=== PATIENT | male | born 1985 | race Caucasian/White ===

== ENCOUNTER 2018-10-17 20:13 | Inpatient (IN) | payer MEDICAID ==
[~2018-10-17] VITALS: Ht 160 cm; Wt 66.2 kg
[2018-10-17 20:18] VITALS: BP 125/83
--- NOTE | 2018-10-17 20:24 | NUR ---
PT TAKEN TO BED 9
--- NOTE | 2018-10-17 20:25 | NUR ---
PT CAME TO ER C/O OF ABDOMINAL PAIN AND BLOATING SINCE 3PM, SHORTLY AFTER EATING. PT TOOK PEPTO BISMAL WITHOUT ANY RELIEF. ABDOMINAL PAIN IS IN LEFT LOWER QUADRANT. PAIN LEVEL 7/10, CRAMPING AND TENDER TO TOUCH. LAST BM 10/17/18. PT HAS NAUSEA. DENIES V/D. NO MED HX. SAFETY MEASURES IN PLACE. ERMD AT BEDSIDE.
[2018-10-17] MEDS ORDERED: KETOROLAC 30 MG/ML VIAL IVP ONE (20:30)
[2018-10-17] MEDS ORDERED: ONDANSETRON 4 MG/2 ML VIAL IVP ONE (20:30)
[2018-10-17] MEDS ORDERED: NACL 0.9% 1,000 ML IV ONE (20:30)
[2018-10-17 20:56] LABS: HEMOGLOBIN 15.9 g/dL (12.0-18.0); MEAN CORPUSCULAR HEMOGLOBIN 29 pg (27-31); MEAN CORPUSCULAR HGB CONC 34 g/dL (33-37); MEAN CORPUSCULAR VOLUME 86.8 fL (80-94); PLATELET COUNT (AUTO) 331 K/uL (140-450); RED BLOOD CELL COUNT(AUTO) 5.42 MIL/uL (4.20-6.10); RED CELL DISTRIBUTION WIDTH 12.9 % (11.6-13.7); WHITE BLOOD COUNT (AUTO) 18.9 K/uL (4.8-10.8)
--- NOTE | 2018-10-17 21:05 | NUR ---
PT AT CT
[2018-10-17 21:06] LABS: ANION GAP 14.3 (8-16); CARBON DIOXIDE 24.4 mmol/L (21-32); POTASSIUM 3.7 mmol/L (3.5-5.1)
[2018-10-17 21:10] LABS: LYMPHOCYTES % (MANUAL) 14 % (20-46); MONOCYTES % (MANUAL) 5 % (5-12)
[2018-10-17 21:12] LABS: ALBUMIN 4.3 g/dL (3.4-5.0); TOTAL BILIRUBIN 0.7 mg/dL (0.0-1.0)
--- NOTE | 2018-10-17 21:18 | NUR ---
PT RETURN FROM CT
[2018-10-17] MEDS ORDERED: metroNIDAZOLE 500 MG/NS PREMIX 100 ML IV ONE (21:45)
[2018-10-17 21:52] LABS: APPEARANCE,URINE CLEAR (CLEAR); BILIRUBIN,URINE NEGATIVE (NEGATIVE); BLOOD, URINE NEGATIVE (NEGATIVE); LEUKOCYTE ESTERASE ,URINE NEGATIVE (NEGATIVE); NITRITE, URINE NEGATIVE (NEGATIVE); PH,URINE 7.5 (5.0-9.0); UGLUCOSE NEGATIVE (NEGATIVE)
[2018-10-17 21:56] LABS: COLOR,URINE YELLOW (YELLOW)
--- NOTE | 2018-10-17 22:40 | NUR ---
RECEIVED FROM ER VIA GURNEY, ABLE TO AMBULATE TOWARDS BED AT UNIT. AWAKE, ALERT ORIENTED X 4; PAIN LEVEL 0/10 DUE ACUTE APPENDICITIS, GIVEN PAIN MED AT ER PER NOREEN CHATTERJEE RN. ORIENTED TO UNIT; H AND PHYSICAL DONE BY RN AND DR. EASON AT BEDSIDE. BED IN LOW POSITION. CALL LIGHT W/IN REACH
--- NOTE | 2018-10-17 22:48 | NUR ---
Patient will be admitted to care of Nik. Admited to med/surg. Will go to room 120a. Belongings list completed. Report to SHAWNA Barry.
--- NOTE | 2018-10-17 22:48 | NUR ---
Transfer of care and report given to SHAWNA Barry.
[2018-10-17 22:52] LABS: MAGNESIUM 1.7 mg/dL (1.8-2.4); PHOSPHORUS 1.3 mg/dL (2.5-4.9)
[2018-10-17 23:00] LABS: PROTHROMBIN TIME 9.6 secs (10.8-13.4)
[2018-10-17] MEDS ORDERED: DEXT 5% /NACL 0.9% 1,000 ML IV ONE (23:00)
[2018-10-17] MEDS ORDERED: NACL 0.9% 1,000 ML IV SCH (23:00)
[2018-10-17] MEDS ORDERED: KETOROLAC 15 MG/ML VIAL IM PRN (23:10)
[2018-10-17 23:26] LABS: BARBITURATE, URINE NEG. ng/ml (NEG <=200); BENZODIAZEPINE, URINE NEG. ng/mL (NEG <=200); CANNABINOID, URINE NEG. ng/mL (NEG <=50); COCAINE, URINE NEG. ng/mL (NEG <=300); OPIATE, URINE NEG. ng/mL (NEG <=2000); PHENCYCLIDINE SCREEN,URINE NEG. ng/mL (NEG <=25)
[2018-10-17] MEDS ORDERED: MAG SULF 2000 MG/WATER PREMIX 50 ML IV SCH (23:30)
--- NOTE | 2018-10-18 | NUR ---
PT COMFORATBLE NO COMPLAINTS FREQUENT CHECKS DONE
[2018-10-18] MEDS: MORPHINE SULFATE 2 MG/ML SYR IVP PRN ×3 (02:00→22:08)
--- NOTE | 2018-10-18 02:00 | NUR ---
R ABDOMINAL PAIN 10/04; GIVEN MOPRHINE ORDERED
--- NOTE | 2018-10-18 03:00 | NUR ---
LAPAROSCOPIC APPENDECTOMY CONSENT SIGNED BY PT
[2018-10-18 04:00] VITALS: BP 122/70
[2018-10-18] MEDS: metroNIDAZOLE 500 MG/NS PREMIX 100 ML IV SCH ×3 (05:37→20:00)
[2018-10-18 05:57] LABS: BASOPHILS % (AUTO) 0.2 % (0.0-2.0); EOSINOPHILS # (AUTO) 0.1 K/uL (0-0.4); EOSINOPHILS % (AUTO) 0.6 % (0.0-4.0); HEMATOCRIT 43.2 % (36-52); HEMOGLOBIN 14.6 g/dL (12.0-18.0); LYMPHOCYTES % (AUTO) 19.2 % (20.5-51.1); MEAN CORPUSCULAR HEMOGLOBIN 29 pg (27-31); MEAN CORPUSCULAR HGB CONC 34 g/dL (33-37); MEAN CORPUSCULAR VOLUME 87.1 fL (80-94); MONOCYTES # (AUTO) 1.2 K/uL (0.8-1.0); MONOCYTES % (AUTO) 7.5 % (1.7-9.3); NEUTROPHILS # (AUTO) 11.5 K/uL (1.8-7.7); NEUTROPHILS % (AUTO) 72.5 % (42.2-75.2); PLATELET COUNT (AUTO) 261 K/uL (140-450); RED BLOOD CELL COUNT(AUTO) 4.96 MIL/uL (4.20-6.10); RED CELL DISTRIBUTION WIDTH 12.8 % (11.6-13.7); WHITE BLOOD COUNT (AUTO) 15.8 K/uL (4.8-10.8)
--- NOTE | 2018-10-18 06:00 | NUR ---
FLAGYL 2ND DOSE GIVEN ORDERED; WILL MONITOR FOR ADVERSE REACTIONS
[2018-10-18 06:24] LABS: ANION GAP 10.1 (8-16); CARBON DIOXIDE 26.6 mmol/L (21-32); CREATININE 0.8 mg/dL (0.7-1.3); POTASSIUM 3.7 mmol/L (3.5-5.1)
--- NOTE | 2018-10-18 06:57 | NUR ---
PT AWAKE, ALERT ORIENTED X 4. FOR LAP APPENDECTOMY TODAY INSTRUCTED OR PREPARATION
--- NOTE | 2018-10-18 07:05 | NUR ---
GOT BEDSIDE REPORT FROM SHAWNA LUKE. PATIENT ON MED SURGE FLOOR WITH STANDARD PRECAUTIONS IN PLACE, AAOX4, ON ROOM AIR, NO DISTRESS NOTED. PATIENT AMBULATORY, CONTINENT AND SKIN INTACT. IV ON L AC 18 G INFUSING D5NS AT 80, IV PATENT AND INTACT. BED IN LOW POSITION, CALL LIGHT WITHIN REACH, SIDE RAILS X2 UP
--- NOTE | 2018-10-18 07:55 | NUR ---
PT BROUGHT TO OR FOR SURGERY
[2018-10-18 08:00] VITALS: BP 124/77
[2018-10-18] MEDS ORDERED: SODIUM PHOSPHATE 15 MMOLE in NACL 0.9% 250 ML IV SCH ×3 (08:00)
[2018-10-18] MEDS ORDERED: PIPERACILLIN/TAZOBACTAM 3.375 GM VIAL IV ONE (08:15)
[2018-10-18] MEDS ORDERED: BUPIVACAINE-MPF/EPI 0.25% 30 ML VIAL INJ ONE (08:15)
[2018-10-18] MEDS ORDERED: PROPOFOL 200 MG/20 ML VIAL IV ONE (08:16)
[2018-10-18] MEDS ORDERED: NEOSTIGMINE 1:1000 10 MG/10 ML VIAL ONE (08:16)
[2018-10-18] MEDS ORDERED: SUCCINYLCHOLINE CHLORIDE 200 MG/10 ML VIAL IVP ONE (08:16)
[2018-10-18] MEDS ORDERED: DEXAMETHASONE 4 MG/ML VIAL ONE (08:16)
[2018-10-18] MEDS ORDERED: GLYCOPYRROLATE 0.2 MG/ML VIAL ONE (08:16)
[2018-10-18] MEDS ORDERED: ONDANSETRON 4 MG/2 ML VIAL ONE (08:16)
[2018-10-18] MEDS ORDERED: DESFLURANE 240 ML BTL INH ONE (08:16)
[2018-10-18] MEDS ORDERED: KETOROLAC 30 MG/ML VIAL ONE (08:16)
[2018-10-18] MEDS ORDERED: ROCURONIUM 50 MG/5 ML VIAL IV ONE (08:16)
[2018-10-18] MEDS ORDERED: HYDROmorphone PFS 2 MG/ML SYR ONE ×2 (08:30→09:53)
[2018-10-18] MEDS ORDERED: fentaNYL 0.05 MG/ML VIAL ONE (08:30)
[2018-10-18] MEDS ORDERED: MIDAZOLAM 2 MG/2 ML VIAL ONE (08:30)
--- NOTE | 2018-10-18 08:46 | NUR ---
PATIENT HAS BEEN SCREENED AND CATEGORIZED LOW NUTRITION RISK. PATIENT WILL BE SEEN WITHIN 7 DAYS OF ADMISSION. 10/24/[address]
--- NOTE | 2018-10-18 10:11 | NUR ---
PATIENT BACK FROM SURGERY
[2018-10-18] MEDS: ONDANSETRON 4 MG/2 ML VIAL IM/IVP PRN ×2 (11:01→16:45)
--- NOTE | 2018-10-18 11:06 | NUR ---
ADMINISTERED ZOFRAN PRN FOR NAUSEA. PATIENT EDUCATED ON USE OF INCENTIVE SPIROMETER. PATIENT DEMONSTRATED CORRECT USE AND VERBALIZED UNDERSTANDING
--- NOTE | 2018-10-18 12:48 | NUR ---
ADMINISTERED SCHEDULED MED. PATIENT TOLERATED WELL. LAYING COMFORTABLY IN BED
[2018-10-18] MEDS ORDERED: HYDROcodone/APAP 5/325 MG 1 TAB TAB PO PRN (13:40)
[2018-10-18] MEDS: NACL 0.9% 1,000 ML IV SCH (13:40)
--- NOTE | 2018-10-18 14:43 | NUR ---
PATIENT SITTING COMFORTABLY IN BED WITH MOM AT BEDSIDE, USING INCENTIVE SPIROMETER
[2018-10-18 16:00] VITALS: BP 100/61
--- NOTE | 2018-10-18 16:00 | NUR ---
PATIENT STATED HE IS BURPING AND USING INCENTIVE SPIROMETER AT LEAST 10X Q1HR
--- NOTE | 2018-10-18 18:10 | NUR ---
PATIENT AMBULATED TO RESTROOM
--- NOTE | 2018-10-18 19:27 | NUR ---
RECEIVED BEDSIDE REPORT FROM DAY RN. PT IS AAO X4. ON ROOM AIR. RESPIRATIONS ARE EQUAL AND UNLABORED. IV ON LAC 18G IVF INFUSING PER ORDERS. S/P LAP APPY TODAY 10/[address] BOOGIE. 3 SURGICAL INCISIONS. C/D/I. PT IS AMBULATORY. PLAN OF CARE DISCUSSED. CALL LIGHT IS WITHIN REACH. FAMILY AT BEDSIDE. WILL ROUND FREQUENTLY.
--- NOTE | 2018-10-18 19:28 | NUR ---
GAVE BEDSIDE REPORT TO TECHNOLOGY SALES SPECIALIST RN. PATIENT ENDORSED IN STABLE CONDITION
--- NOTE | 2018-10-18 20:00 | NUR ---
SCHEDULED MEDICATIONS WERE GIVEN. PATIENT TOLERATED WELL. NO S/S OF DISTRESS. FAMILY IS AT BEDSIDE. WILL CONTINUE TO MONITOR.
--- NOTE | 2018-10-18 20:48 | NUR ---
PATIENT IS WALKING ROUND THE UNIT WITH BROTHER. ALL SAFETY MEASURES ARE IN PLACE.
--- NOTE | 2018-10-18 22:08 | NUR ---
MEDICATED PATIENT WITH MORPHINE FOR PAIN 11/04. MOTHER IS AT BEDSIDE. CALL LIGHT IS WITHIN REACH. WILL CONTINUE TO MONITOR.
[2018-10-19] VITALS: BP 149/85
[2018-10-19 00:10] VITALS: BP 100/54
--- NOTE | 2018-10-19 00:11 | NUR ---
VITAL SIGNS ARE WITHIN NORMAL LIMITS. NO S/S OF DISTRESS. ALL NEEDS MET AT THIS TIME. CALL LIGHT IS WITHIN REACH.
--- NOTE | 2018-10-19 02:30 | NUR ---
PATIENT IS SLEEPING COMFORTABLY IN BED. SAFETY MEASURES ARE IN PLACE. CALL LIGHT WITHIN REACH.
--- NOTE | 2018-10-19 05:30 | NUR ---
ZOSYN NOW INFUSING. PT DENIES ANY PAIN AND HAS BEEN PASSING GAS. ALL NEEDS MET AT THIS TIME. WILL CONTINUE TO MONITOR.
[2018-10-19] MEDS: metroNIDAZOLE 500 MG/NS PREMIX 100 ML IV SCH (05:34)
[2018-10-19 06:10] LABS: ANION GAP 8.4 (8-16); CARBON DIOXIDE 27.4 mmol/L (21-32); CREATININE 0.8 mg/dL (0.7-1.3); POTASSIUM 3.8 mmol/L (3.5-5.1)
[2018-10-19 06:19] LABS: PHOSPHORUS 3.7 mg/dL (2.5-4.9)
[2018-10-19] MEDS ORDERED: HYDR-5122 PO (06:43)
[2018-10-19 07:07] LABS: BASOPHILS % (AUTO) 0.1 % (0.0-2.0); EOSINOPHILS % (AUTO) 0.2 % (0.0-4.0); HEMATOCRIT 37.9 % (36-52); HEMOGLOBIN 12.7 g/dL (12.0-18.0); LYMPHOCYTES # (AUTO) 2.4 K/uL (2.0-11.5); LYMPHOCYTES % (AUTO) 20.7 % (20.5-51.1); MEAN CORPUSCULAR HEMOGLOBIN 30 pg (27-31); MEAN CORPUSCULAR HGB CONC 34 g/dL (33-37); MEAN CORPUSCULAR VOLUME 87.7 fL (80-94); MONOCYTES # (AUTO) 0.7 K/uL (0.8-1.0); MONOCYTES % (AUTO) 6.3 % (1.7-9.3); NEUTROPHILS # (AUTO) 8.3 K/uL (1.8-7.7); NEUTROPHILS % (AUTO) 72.7 % (42.2-75.2); PLATELET COUNT (AUTO) 255 K/uL (140-450); RED BLOOD CELL COUNT(AUTO) 4.32 MIL/uL (4.20-6.10); RED CELL DISTRIBUTION WIDTH 13.3 % (11.6-13.7); WHITE BLOOD COUNT (AUTO) 11.4 K/uL (4.8-10.8)
--- NOTE | 2018-10-19 07:36 | NUR ---
GAVE BEDSIDE REPORT TO DAY RN. PT ENDORSED IN STABLE CONDITION.
--- NOTE | 2018-10-19 07:40 | NUR ---
RECEIVED PT FROM SUPERVISOR PLASTIC SHEETS NURSE, PT IS AWAKE AND SEATED ON THE BED WITH ON THE BEDSIDE, IV LINE ON THE LEFT AC G. 18 WITH NS INFUSING AT 50ML/HR, INTACT, PT IS S/P LAP APPENDECTOMY AND 3 SURGICAL INCISIONS WERE INTACT IN TH ABDOMEN WITH STERI STRIP IN PLACE, PT DENIES PAIN AND VERBALIZED PASSING OUT GAS. RESPIRATION IS EVEN AND NO SIGN OF DISTRESS NOTED. WILL MONITOR PT.
[2018-10-19 08:00] VITALS: BP 106/68
--- NOTE | 2018-10-19 08:00 | NUR ---
PT IS AWAKE AND SEATED ON THE BED, VITAL SIGNS TAKEN AND IS WITHIN NORMAL LIMITS. NO SIGN OF DISTRESS NOTED AND PT DENIES PAIN. WILL MONITOR PT.
[2018-10-19] MEDS: NACL 0.9% 1,000 ML IV SCH (09:40)
--- NOTE | 2018-10-19 10:20 | NUR ---
PT IS AWAKE AND SEATED ON THE BED, DENIES PAIN AND WAS INFORMED THAT HE IS BEING DISCHARGED TODAY. DIETARY TEACHINGS AND WOUND MANAGEMENT WAS GIVEN TO PT AND VERBALIZED UNDERSTANDING.
--- NOTE | 2018-10-19 12:05 | NUR ---
DISCHARGED PT TO HOME WITH , TEACHINGS AND INSTRUCTIONS ON MEDICATION PRESCRIPTION WAS GIVEN TO PT AND VERBALIZED UNDERSTANDING, IV AND ARM BAND REMOVED AND PT IS STABLE AT THIS TIME.
== END 2018-10-19 12:05 | disposition home or self-care (01) | DRG 234 ==
LOC: MED 20:13 → MTU 22:24
PROVIDERS: ADMIT Family Medicine; ATTEND Family Medicine
PROC: 0DTJ4ZZ Resection of Appendix, Percutaneous Endoscopic Approach (ICD-10-PCS; principal; 2018-10-18 08:30)
DX: K35.80 Unspecified acute appendicitis (principal); E83.39 Other disorders of phosphorus metabolism; E83.42 Hypomagnesemia
CPT/HCPCS: 36415; 80048; 80053; 80305; 81003; 83735; 84100; 85025; 85610; 85730; 87040; 87081; 88304; 96374; 96375; 99285; J0330; J1100; J1170; J1885; J2250; J2270; J2405; J2543; J2704; J2710; J3010; J3475; J3490; J7030; J7042

== ENCOUNTER 2021-05-11 09:07 | Emergency (ER) | payer SELFPAY ==
[~2021-05-11] VITALS: Ht 154.9 cm; Wt 72.6 kg
[~2021-05-11 09:07] MED LIST: HYDR-5122 PO
[2021-05-11 09:20] VITALS: BP 143/82
[2021-05-11] MEDS ORDERED: ONDANSETRON 4 MG ODT PO ONE (09:55)
[2021-05-11] MEDS ORDERED: ALUMINUM HYD/MAG/SIMETHICONE 30 ML UDC PO ONE (09:55)
--- NOTE | 2021-05-11 10:09 | NUR ---
35/M BIB SELF WITH C/O BACK PAIN RADIATING TO HIS ABDOMEN X3 DAYS. STATES HE HAD A FEW DRINKS YESTERDAY AND A HEAVY DINNER, STATING PAIN HAS SINCE WORSENED. DENIES V/D, DYSURIA. REPORTS TAKING IBUPROFEN PRIOR TO ARRIVAL TO ED WITH MILD RELIEF.
[2021-05-11 10:20] LABS: BASOPHILS % (AUTO) 0.1 % (0.0-2.0); EOSINOPHILS # (AUTO) 0.3 K/uL (0-0.4); EOSINOPHILS % (AUTO) 2.2 % (0.0-4.0); HEMATOCRIT 46.8 % (36-52); HEMOGLOBIN 16.2 g/dL (12.0-18.0); LYMPHOCYTES # (AUTO) 1.3 K/uL (2.0-11.5); LYMPHOCYTES % (AUTO) 11.2 % (20.5-51.1); MEAN CORPUSCULAR HEMOGLOBIN 30 pg (27-31); MEAN CORPUSCULAR HGB CONC 35 g/dL (33-37); MEAN CORPUSCULAR VOLUME 86.3 fL (80-94); MONOCYTES # (AUTO) 0.6 K/uL (0.8-1.0); MONOCYTES % (AUTO) 5.4 % (1.7-9.3); NEUTROPHILS # (AUTO) 9.6 K/uL (1.8-7.7); NEUTROPHILS % (AUTO) 81.1 % (42.2-75.2); PLATELET COUNT (AUTO) 331 K/uL (140-450); RED BLOOD CELL COUNT(AUTO) 5.42 MIL/uL (4.20-6.10); WHITE BLOOD COUNT (AUTO) 11.9 K/uL (4.8-10.8)
[2021-05-11 11:20] LABS: CARBON DIOXIDE 23.7 mmol/L (21-32); CREATININE 0.8 mg/dL (0.6-1.3); POTASSIUM 3.7 mmol/L (3.5-5.1); TOTAL BILIRUBIN 0.6 mg/dL (0.0-1.0)
[2021-05-11 12:12] LABS: PHOSPHORUS 1.1 mg/dL (2.5-4.9)
[2021-05-11] MEDS ORDERED: FAMO-92 PO (12:29)
[2021-05-11] MEDS ORDERED: HYDR-2734 TP (12:29)
[2021-05-11 12:35] VITALS: BP 109/63
--- NOTE | 2021-05-11 12:35 | NUR ---
Patient discharged with v/s stable. Written and verbal after care instructions ABOUT GASTRITIS AND ABDOMINAL PAIN given and explained. Patient alert, oriented and verbalized understanding of instructions. Ambulatory with steady gait. All questions addressed prior to discharge. ID band removed. Patient advised to follow up with PMD. Rx of PEPCID AND HYDROCORTISONE given. Patient educated on indication of medication including possible reaction and side effects. Opportunity to ask questions provided and answered.
== END 2021-05-11 12:35 | disposition home or self-care (01) ==
LOC: MED 09:07
DX: K64.9 Unspecified hemorrhoids (principal); R11.0 Nausea; F12.90 Cannabis use, unspecified, uncomplicated; Z79.899 Other long term (current) drug therapy
CPT/HCPCS: 36415; 80053; 81002; 83690; 83735; 84100; 85025; 99283; Q0162